=== PATIENT | female | born 1985 | race American Indian/Alaskan Native ===

== ENCOUNTER 2017-06-15 23:29 | Emergency (ER) | payer MEDICAID ==
[2017-06-16 00:49] VITALS: BP 130/81
[2017-06-16] MEDS ORDERED: DUONEB *Not for PRN Use IH ONE (00:50)
[2017-06-16] MEDS ORDERED: PROVENTIL IH ONE ×2 (01:03→01:05)
[2017-06-16] MEDS ORDERED: ATROVENT IH ONE ×2 (01:03→01:05)
== END 2017-06-16 07:40 | disposition left against medical advice (07) ==
LOC: ED 23:29
DX: R06.02 Shortness of breath (principal); R05 Cough; Z53.21 Procedure and treatment not carried out due to patient leaving prior to being seen by health care provider
CPT/HCPCS: 93005; 93010

== ENCOUNTER 2017-10-05 19:28 | Emergency (ER) | payer MEDICAID ==
[2017-10-05 19:55] VITALS: BP 101/72
[2017-10-05] MEDS ORDERED: FLAGYL PO ONE (20:46)
[2017-10-05] MEDS ORDERED: DIFLUCAN PO ONE (20:46)
--- NOTE | 2017-10-05 21:10 | Emergency Department Report ---
ED Female HPI - General Chief complaint: Urogenital-Female Stated complaint: POSSIBLE DISCHARGE Time Seen by Provider: 10/05/17 20:41 Source: patient Mode of arrival: Ambulatory Limitations: No Limitations - History of Present Illness Initial comments: Patient is a 32-year-old black female presenting with vaginal discharge. Patient states she is passing to start often and usually after menstrual period. Patient states she has some discharge with some burning when she urinates. Patient states she's had multiple episodes of yeast infections as well as bacterial vaginosis. Patient denies being sexually active at this time. Patient states that she has had no nausea vomiting diarrhea cough congestion and headache at this time. - Related Data Allergies Allergy/AdvReac Type Severity Reaction Status Date / Time latex Allergy Itching Verified 06/16/17 00:50 Penicillins Allergy Itching Verified 06/16/17 00:50 ED Review of Systems ROS: Stated complaint: POSSIBLE DISCHARGE Other details as noted in HPI Comment: All other systems reviewed and negative ED Past Medical Hx - Past Medical History Hx Hypertension: Yes Hx Diabetes: Yes (pre-diabetic) Hx Asthma: Yes Additional medical history: anemia - Social History Smoking Status: Never Smoker Substance Use Type: None ED Physical Exam - General Limitations: No Limitations General appearance: alert, in no apparent distress - Head Head exam: Present: atraumatic, normocephalic - Eye Eye exam: Present: normal appearance - ENT ENT exam: Present: mucous membranes moist - Neck Neck exam: Present: normal inspection - Respiratory Respiratory exam: Present: normal lung sounds bilaterally. Absent: respiratory distress - Cardiovascular Cardiovascular Exam: Present: regular rate, normal rhythm. Absent: systolic murmur, diastolic murmur, rubs, gallop - GI/Abdominal GI/Abdominal exam: Present: soft, normal bowel sounds - Extremities Exam Extremities exam: Present: normal inspection - Back Exam Back exam: Present: normal inspection - Neurological Exam Neurological exam: Present: alert, oriented X3 - Psychiatric Psychiatric exam: Present: normal affect, normal mood - Skin Skin exam: Present: warm, dry, intact, normal color. Absent: rash ED Course Vital Signs 10/05/17 19:53 Temperature 97.8 F Pulse Rate 77 Respiratory 16 Rate Blood Pressure 101/72 O2 Sat by Pulse 97 Oximetry ED Medical Decision Making - Medical Decision Making She'll be empirically treated for bacterial vaginosis and yeast infection be referred to [facility] for further services. Critical care attestation.: If time is entered above; I have spent that time in minutes in the direct care of this critically ill patient, excluding procedure time. ED Disposition Clinical Impression: Vaginitis Qualifiers: Chronicity: acute Qualified Code(s): N76.0 - Acute vaginitis Disposition: TO HOME OR SELFCARE Is pt being admited?: No Does the pt Need Aspirin: No Condition: Stable Referrals: EVERT OCASIO MD [Staff Physician] - 3-5 Days
== END 2017-10-05 23:49 | disposition home or self-care (01) ==
LOC: ED 19:28
DX: N76.0 Acute vaginitis (principal); I10 Essential (primary) hypertension; E11.9 Type 2 diabetes mellitus without complications; J45.909 Unspecified asthma, uncomplicated; Z86.2 Personal history of diseases of the blood and blood-forming organs and certain disorders involving the immune mechanism; Z91.040 Latex allergy status; Z88.0 Allergy status to penicillin
CPT/HCPCS: 99282

== ENCOUNTER 2017-10-20 10:24 | Emergency (ER) | payer MEDICAID ==
[2017-10-20 10:41] VITALS: BP 120/78
[2017-10-20] MEDS ORDERED: ZOFRAN ODT PO ONE (11:14)
--- NOTE | 2017-10-20 11:18 | Emergency Department Report ---
ED General Adult HPI - General Chief complaint: Headache Stated complaint: ORTIZ/NAUSEA/ABD Time Seen by Provider: 10/20/17 11:09 Source: patient Mode of arrival: Ambulatory Limitations: No Limitations - History of Present Illness Initial comments: She is a 32-year-old female who is presenting with nausea vomiting for the past 2 days. Patient states she lives in shelters eaten some eggs several days ago and afterwards started having nausea vomiting diarrhea. Patient states she's vomited twice is still nauseous and sat 1 episode of diarrhea. Patient has some crampy epigastric discomfort that she rates a 5 out of 10. Patient also has a mild headache as well. Patient denies any fevers chills cough congestion at this time. - Related Data Previous Rx's Medication Instructions Recorded Last Taken Type Promethazine [Phenergan TAB] 25 mg PO Q8HR PRN #20 tab 10/20/17 Unknown Rx Allergies Allergy/AdvReac Type Severity Reaction Status Date / Time latex Allergy Itching Verified 06/16/17 00:50 Penicillins Allergy Itching Verified 06/16/17 00:50 ED Review of Systems ROS: Stated complaint: ORTIZ/NAUSEA/ABD Other details as noted in HPI Comment: All other systems reviewed and negative ED Past Medical Hx - Past Medical History Previous Medical History?: Yes Hx Hypertension: Yes Hx Diabetes: Yes (pre-diabetic) Hx Asthma: Yes Additional medical history: anemia - Surgical History Past Surgical History?: No - Social History Smoking Status: Never Smoker Substance Use Type: None - Medications Home Medications: Home Medications Medication Instructions Recorded Confirmed Last Taken Type Promethazine [Phenergan TAB] 25 mg PO Q8HR PRN #20 tab 10/20/17 Unknown Rx ED Physical Exam - General Limitations: No Limitations General appearance: alert, in no apparent distress - Head Head exam: Present: atraumatic, normocephalic - Eye Eye exam: Present: normal appearance - ENT ENT exam: Present: mucous membranes moist - Neck Neck exam: Present: normal inspection - Respiratory Respiratory exam: Present: normal lung sounds bilaterally. Absent: respiratory distress, wheezes, rales, rhonchi - Cardiovascular Cardiovascular Exam: Present: regular rate, normal rhythm. Absent: systolic murmur, diastolic murmur, rubs, gallop - GI/Abdominal GI/Abdominal exam: Present: soft, normal bowel sounds. Absent: distended, tenderness, guarding, rebound - Extremities Exam Extremities exam: Present: normal inspection - Back Exam Back exam: Present: normal inspection - Neurological Exam Neurological exam: Present: alert, oriented X3 - Psychiatric Psychiatric exam: Present: normal affect, normal mood - Skin Skin exam: Present: warm, dry, intact, normal color. Absent: rash ED Course Vital Signs 10/20/17 10:37 Temperature 98.3 F Pulse Rate 67 Respiratory 20 Rate Blood Pressure 120/78 O2 Sat by Pulse 100 Oximetry ED Medical Decision Making - Medical Decision Making Patient is a 32-year-old female with nausea vomiting diarrhea after eating some eggs that were potentially not well several days ago. The patient was given Zofran here in the emergency department. Patient looks fairly well and can be discharged home without extensive laboratory studies. Critical care attestation.: If time is entered above; I have spent that time in minutes in the direct care of this critically ill patient, excluding procedure time. ED Disposition Clinical Impression: Gastroenteritis Disposition: DC-01 TO HOME OR SELFCARE Is pt being admited?: No Does the pt Need Aspirin: No Condition: Stable Instructions: Food Poisoning (ED) Prescriptions: Promethazine [Phenergan TAB] 25 mg PO Q8HR PRN #20 tab PRN Reason: Nausea
== END 2017-10-20 11:33 | disposition home or self-care (01) ==
LOC: ED 10:24
DX: K52.9 Noninfective gastroenteritis and colitis, unspecified (principal); I10 Essential (primary) hypertension; J45.909 Unspecified asthma, uncomplicated; Z88.0 Allergy status to penicillin; Z91.040 Latex allergy status; Z86.2 Personal history of diseases of the blood and blood-forming organs and certain disorders involving the immune mechanism
CPT/HCPCS: 99282; Q0162

== ENCOUNTER 2017-12-06 23:09 | Emergency (ER) | payer SELFPAY ==
[2017-12-07 01:43] VITALS: BP 129/81
--- NOTE | 2017-12-07 08:06 | Emergency Department Report ---
ED ENT HPI - General Chief complaint: Sore Throat Stated complaint: REAL BAD SORE THROAT REAL SWOLLENDDDDD Time Seen by Provider: 12/07/17 04:45 Source: patient Mode of arrival: Ambulatory Limitations: No Limitations - History of Present Illness Initial comments: This is a 32-year-old -[place] mother of 5 who presents for pharyngitis scratchy throat for 3-4 days subjective fever objective no fever states pain with swallowing or unable to tolerate by mouth intake without concerns no nausea vomiting no abdominal pain no dizziness or lightheadedness no rash complaint: sore throat Onset/Timin -: days(s) Location: throat Severity: moderate Severity scale (0 -10): 4 Quality: aching, sharp Consistency: intermittent Improves with: none Worsens with: swallowing Associated Symptoms: pain with swallowing, sore throat. denies: fever, cough, gum swelling, toothache, tinnitus, hearing loss, discharge from ear, rhinorrhea - Related Data Home Medications Medication Instructions Recorded Confirmed Last Taken Albuterol Sulfate [Ventolin HFA] 2 puff IH Q4H PRN 10/26/17 10/26/17 Unknown predniSONE [Deltasone] 60 mg PO QDAY 10/26/17 10/26/17 Unknown Previous Rx's Medication Instructions Recorded Last Taken Type Azithromycin [Zithromax TAB] 250 mg PO QDAY #4 tablet 10/28/17 Unknown Rx Ferrous Sulfate [Feosol 325 MG tab] 325 mg PO TID #90 tablet 10/28/17 Unknown Rx Benzocaine/Menth/Cetylpyrd 8 each MM Q4HR PRN #3 packet 12/07/17 Unknown Rx [Cepacol X Strength] Ibuprofen 800 mg PO TID PRN #30 tablet 12/07/17 Unknown Rx Allergies Allergy/AdvReac Type Severity Reaction Status Date / Time latex Allergy Itching Verified 06/16/17 00:50 Penicillins Allergy Itching Verified 06/16/17 00:50 ED Dental HPI - General Chief complaint: Sore Throat Stated complaint: REAL BAD SORE THROAT REAL SWOLLENDDDDD Time Seen by Provider: 12/07/17 04:45 Source: patient Mode of arrival: Ambulatory Limitations: No Limitations - Related Data Home Medications Medication Instructions Recorded Confirmed Last Taken Albuterol Sulfate [Ventolin HFA] 2 puff IH Q4H PRN 10/26/17 10/26/17 Unknown predniSONE [Deltasone] 60 mg PO QDAY 10/26/17 10/26/17 Unknown Previous Rx's Medication Instructions Recorded Last Taken Type Azithromycin [Zithromax TAB] 250 mg PO QDAY #4 tablet 10/28/17 Unknown Rx Ferrous Sulfate [Feosol 325 MG tab] 325 mg PO TID #90 tablet 10/28/17 Unknown Rx Benzocaine/Menth/Cetylpyrd 8 each MM Q4HR PRN #3 packet 12/07/17 Unknown Rx [Cepacol X Strength] Ibuprofen 800 mg PO TID PRN #30 tablet 12/07/17 Unknown Rx Allergies Allergy/AdvReac Type Severity Reaction Status Date / Time latex Allergy Itching Verified 06/16/17 00:50 Penicillins Allergy Itching Verified 06/16/17 00:50 ED Review of Systems ROS: Stated complaint: REAL BAD SORE THROAT REAL SWOLLENDDDDD Other details as noted in HPI Constitutional: denies: chills, fever Eyes: denies: eye pain, eye discharge, vision change ENT: throat pain Respiratory: denies: cough, shortness of breath, wheezing Cardiovascular: denies: chest pain, palpitations Endocrine: no symptoms reported Gastrointestinal: denies: abdominal pain, nausea, diarrhea Genitourinary: denies: urgency, dysuria, discharge Musculoskeletal: denies: back pain, joint swelling, arthralgia Skin: denies: rash, lesions Neurological: denies: headache, weakness, paresthesias Psychiatric: denies: anxiety, depression Hematological/Lymphatic: denies: easy bleeding, easy bruising ED Past Medical Hx - Past Medical History Previous Medical History?: Yes Hx Hypertension: Yes Hx Diabetes: Yes (pre-diabetic) Hx Asthma: Yes Additional medical history: anemia - Surgical History Past Surgical History?: Yes Additional Surgical History: Heart surgery as a child - Social History Smoking Status: Never Smoker - Medications Home Medications: Home Medications Medication Instructions Recorded Confirmed Last Taken Type Albuterol Sulfate [Ventolin HFA] 2 puff IH Q4H PRN 10/26/17 10/26/17 Unknown History predniSONE [Deltasone] 60 mg PO QDAY 10/26/17 10/26/17 Unknown History Azithromycin [Zithromax TAB] 250 mg PO QDAY #4 tablet 10/28/17 Unknown Rx Ferrous Sulfate [Feosol 325 MG tab] 325 mg PO TID #90 tablet 10/28/17 Unknown Rx Benzocaine/Menth/Cetylpyrd 8 each MM Q4HR PRN #3 packet 12/07/17 Unknown Rx [Cepacol X Strength] Ibuprofen 800 mg PO TID PRN #30 tablet 12/07/17 Unknown Rx ED Physical Exam - General Limitations: No Limitations General appearance: alert, in no apparent distress - Head Head exam: Present: atraumatic, normocephalic - Eye Eye exam: Present: normal appearance, PERRL - ENT ENT exam: Present: mucous membranes moist, TM's normal bilaterally, normal external ear exam - Expanded ENT Exam Expanded Mouth exam: Absent: trismus Teeth exam: Present: normal inspection Throat exam: Positive: tonsillar erythema, tonsillomegaly. Negative: tonsillar exudate, R peritonsillar mass, L peritonsillar mass - Neck Neck exam: Present: normal inspection, full ROM. Absent: tenderness, lymphadenopathy, thyromegaly - Respiratory Respiratory exam: Present: normal lung sounds bilaterally. Absent: respiratory distress, wheezes, stridor, chest wall tenderness - Cardiovascular Cardiovascular Exam: Present: regular rate, normal rhythm. Absent: systolic murmur, diastolic murmur, rubs, gallop - GI/Abdominal GI/Abdominal exam: Present: soft, normal bowel sounds - Rectal Rectal exam: Present: deferred - Extremities Exam Extremities exam: Present: normal inspection - Back Exam Back exam: Present: normal inspection - Neurological Exam Neurological exam: Present: alert, oriented X3 - Psychiatric Psychiatric exam: Present: normal affect, normal mood - Skin Skin exam: Present: warm, dry, intact, normal color. Absent: rash ED Course Vital Signs 12/07/17 01:40 Temperature 98.2 F Pulse Rate 65 Respiratory 20 Rate Blood Pressure 129/81 O2 Sat by Pulse 100 Oximetry ED Medical Decision Making - Medical Decision Making rapid strep is neg, plan tx for phayrngitis , URI, iubprofen, cepacol lozenges, continue thania medications as rx follow up with pcp in 2-3 days. Critical care attestation.: If time is entered above; I have spent that time in minutes in the direct care of this critically ill patient, excluding procedure time. ED Disposition Clinical Impression: Pharyngitis Qualifiers: Pharyngitis/tonsillitis etiology: unspecified etiology Qualified Code(s): J02.9 - Acute pharyngitis, unspecified Disposition: DC-01 TO HOME OR SELFCARE Is pt being admited?: No Does the pt Need Aspirin: No Condition: Good Instructions: Pharyngitis (ED) Prescriptions: Benzocaine/Menth/Cetylpyrd [Cepacol X Strength] 8 each MM Q4HR PRN #3 packet PRN Reason: Sore Throat Ibuprofen 800 mg PO TID PRN #30 tablet PRN Reason: Pain Referrals: [facility],MD [Primary Care Provider] - 3-5 Days Forms: Work/School Release Form(ED) Time of Disposition: 08:09
== END 2017-12-07 08:27 | disposition home or self-care (01) ==
LOC: ED 23:09
DX: J02.9 Acute pharyngitis, unspecified (principal); I10 Essential (primary) hypertension; E11.9 Type 2 diabetes mellitus without complications; J45.909 Unspecified asthma, uncomplicated; Z88.0 Allergy status to penicillin; Z91.040 Latex allergy status; Z86.2 Personal history of diseases of the blood and blood-forming organs and certain disorders involving the immune mechanism
CPT/HCPCS: 87116; 87430; 99283

== ENCOUNTER 2017-12-19 21:56 | Emergency (ER) | payer SELFPAY ==
[2017-12-19 22:14] VITALS: BP 101/64
--- NOTE | 2017-12-20 | Emergency Department Report ---
Blank Doc - Documentation Documentation: Patient eloped before I could ever interact with her. As per paramedics she stated she had to leave. By the time I went to assessment room patient was gone
== END 2017-12-19 23:19 | disposition left against medical advice (07) ==
LOC: ED 22:12
DX: N89.8 Other specified noninflammatory disorders of vagina (principal); Z53.21 Procedure and treatment not carried out due to patient leaving prior to being seen by health care provider